=== PATIENT | male | born 1955 | race Caucasian/White ===

== ENCOUNTER → 2021-02-02 | Day surgery (SDC) | payer MEDICARE, BC ==
[~2021-02-02] MED LIST: Midazolam 1 MG/ML 2 ML SDV ONE; Propofol 200 MG/20 ML SDV ONE; Sodium Chloride 0.9% 1,000 ML IV SCH; fentaNYL 100 MCG/2 ML SDV ONE
[2021-02-02 06:50] VITALS: BP 142/86; PULSE 48
--- NOTE | 2021-02-02 11:36 | OR ---
DATE OF PROCEDURE: 02/02/2021 SURGEON: Philippe Collins MD ADDENDUM: I did discuss with the patient that we did not make it entirely to the cecum and there in theory is a chance we missed a colorectal cancer or some other pathological diagnoses. I also discussed the submucosal injury secondary to the scope and the clip that was placed. I discussed the signs and symptoms of complications such as leak or perforation. The patient understands these risks. We discussed risks, benefits, and alternatives including DNA testing, repeat colonoscopy, and the role of these things. He has politely declined and understands that the risks are small, but he understands them and does not want any further testing with respect to this. Philippe Collins MD /[id number]
--- NOTE | 2021-02-03 10:12 | OR ---
DATE OF PROCEDURE: SURGEON: Philippe Collins MD PROCEDURE: Colonoscopy. FINDINGS: 1. Significant and severe tortuosity in the sigmoid colon precluding complete examination of the cecum. 2. No gross abnormalities. COMPLICATIONS: None. MEDICAL SPECIALIST: None. ANESTHESIA: MAC. PREOPERATIVE DIAGNOSIS: Screening colonoscopy. POSTOPERATIVE DIAGNOSIS: Screening colonoscopy. RISKS: Risks, benefits, alternatives, and limitations including, but not limited to infection, bleeding, perforation, false positives, false negatives, and other risks not listed here were explained to the patient and he wished to proceed. We also discussed the sequelae of perforation of polyp removal, postoperative bleeding secondary to polyp removal, and other risks. PROCEDURE IN DETAIL: The patient was placed in left lateral decubitus position. Digital rectal exam was performed without abnormality. Scope was introduced and advanced atraumatically. The patient was noted to have significant tortuosities within the sigmoid and descending colon. Due to this challenging torsion, which is most likely a near or a 360- degree turn, scope was able to be passed to it. This was to the cecum. However, the cecum could be seen, a photo was taken, but the cecum was not completely interrogated. The scope was brought back to the colon. There was a small mucosal tear noted. This was not through the muscular layer. This was measured to be less than 1 cm. A photo was taken as a clip was placed over this possible defect. The scope was brought back to the remainder of the colon. No abnormalities were noted. No diverticulosis. No old or new blood. No colitis. No abnormalities on retroflexion. The prep also had challenges with solid and liquid stool remaining, approximately 85% to 90% of the luminal surface could be seen. Greater than 8 minutes was spent removing the scope. Of note, at no time was the scope ever blindly advanced nor undue pressure. The procedure was terminated at that point due to the risk of perforation and the objective of prevention of the aforementioned problem. The patient tolerated the procedure well. Philippe Collins MD /[id number]
== END ==
LOC: JP.SDS 06:28
PROVIDERS: ATTEND Surgery
DX: Z12.11 Encounter for screening for malignant neoplasm of colon (principal); K63.1 Perforation of intestine (nontraumatic); K63.89 Other specified diseases of intestine; Z88.8 Allergy status to other drugs, medicaments and biological substances
CPT/HCPCS: G0121; J2250; J2704; J3010; J7030